=== PATIENT | female | born 2000 | race Caucasian/White ===

== ENCOUNTER 2021-12-04 22:46 | Emergency (ER) | payer SELFPAY ==
[~2021-12-04] VITALS: Ht 165.1 cm; Wt 85.3 kg
[2021-12-04 23:28] VITALS: BP_SYST 158
[2021-12-05 00:27] LABS: BASOPHILS % (AUTO) 0.5 % (0.0-2.0); EOSINOPHILS % (AUTO) 0.3 % (0.0-4.0); HEMATOCRIT 40.7 % (36-48); HEMOGLOBIN 13.6 g/dL (12.0-16.0); LYMPHOCYTES # (AUTO) 2.6 K/uL (1.0-5.5); LYMPHOCYTES % (AUTO) 33.6 % (20.5-51.5); MEAN CORPUSCULAR HEMOGLOBIN 29 pg (27-31); MEAN CORPUSCULAR HGB CONC 34 % (32-36); MEAN CORPUSCULAR VOLUME 88 fL (79.0-98.0); MONOCYTES # (AUTO) 0.5 K/uL (0.0-1.0); NEUTROPHILS # (AUTO) 4.6 K/uL (1.8-7.7); NEUTROPHILS % (AUTO) 59.6 % (40.0-70.0); PLATELET COUNT (AUTO) 315 K/uL (130-430); RED BLOOD CELL COUNT(AUTO) 4.64 MIL/uL (4.2-6.2); RED CELL DISTRIBUTION WIDTH 14.2 % (9.0-15.0); WHITE BLOOD COUNT (AUTO) 7.8 K/uL (4.5-11.0)
[2021-12-05 00:42] LABS: CALCIUM 8.8 mg/dL (8.4-11.0); CREATININE 0.62 mg/dL (0.55-1.30); POTASSIUM 3.6 mmol/L (3.5-5.1)
[2021-12-05 01:01] LABS: ALBUMIN 4.1 g/dL (3.4-4.8); TOTAL BILIRUBIN 0.3 mg/dL (0.0-1.0)
[2021-12-05 01:25] LABS: BILIRUBIN,URINE NEGATIVE (NEGATIVE); BLOOD, URINE NEGATIVE (NEGATIVE); CLARITY/URINE CLEAR (CLEAR); COLOR,URINE YELLOW (YELLOW); GLUCOSE,URINE NEGATIVE (NEGATIVE); KETONES,URINE 2+ (NEGATIVE); LEUKOCYTE ESTERASE ,URINE NEGATIVE (NEGATIVE); NITRITE, URINE NEGATIVE (NEGATIVE); PH,URINE 5.5 (5.0-8.0); PROTEIN URINE NEGATIVE (NEGATIVE); UROBILINOGEN,URINE 0.2 (0.2-1.0)
[2021-12-05] MEDS ORDERED: IBUP-1971 PO (02:28)
[2021-12-05 02:35] VITALS: BP_SYST 158
== END 2021-12-05 02:35 | disposition home or self-care (01) ==
LOC: SED 22:46
DX: R10.31 Right lower quadrant pain (principal); R10.32 Left lower quadrant pain
CPT/HCPCS: 36415; 80053; 81003; 81025; 83690; 85025; 99283

== ENCOUNTER 2022-05-23 00:19 | Emergency (ER) | payer SELFPAY ==
[~2022-05-23] VITALS: Ht 165.1 cm; Wt 90.7 kg
[~2022-05-23 00:19] MED LIST: IBUP-1971 PO
[2022-05-23 00:26] VITALS: BP_SYST 151
--- NOTE | 2022-05-23 00:31 | NUR ---
DR. SCHMID AT BEDSIDE.
--- NOTE | 2022-05-23 00:31 | NUR ---
PATIENT TAKEN TO ROOM 6, AMBULATES WITHOUT ISSUE. RESTING IN BED, WAITING FOR ASSESSMENT.
--- NOTE | 2022-05-23 00:35 | NUR ---
BIB AMB WITH TRIAGE NURSE. C/O OF PAIN AND SWELLING BEHIND LEFT EAR X1 DAY, RADIATIING TO LEFT JAW AREA WITH VALDEZ. PAIN LEVAL 04/05. NO C/O N/V/D OR FEVER. DENIES INJURY. DR. SCHMID AT BEDSIDE EXAM/ EVAL
[2022-05-23] MEDS ORDERED: CEPH-548 PO (00:47)
[2022-05-23 01:11] VITALS: BP_SYST 143
--- NOTE | 2022-05-23 01:13 | NUR ---
PT STABLE FOR D/C TO HOME WITH MOM. TO LOBBY AMB WITH ALL PAPERWORK IN [facility]
== END 2022-05-23 01:11 | disposition home or self-care (01) ==
LOC: SED 00:19
DX: L08.9 Local infection of the skin and subcutaneous tissue, unspecified (principal); R51.9 Headache, unspecified; Z79.899 Other long term (current) drug therapy
CPT/HCPCS: 99282; 99283

== ENCOUNTER 2023-06-07 00:35 | Emergency (ER) | payer MEDICAID, OTHER ==
[~2023-06-07] VITALS: Ht 165.1 cm; Wt 97.5 kg
[~2023-06-07 00:35] MED LIST changes: +CEPH-548 PO; +OSEL75CA PO
[2023-06-07 00:44] VITALS: BP_SYST 159; PULSE 20; RESP 20; TEMP 98; O2SAT 98
[2023-06-07 01:30] VITALS: BP_SYST 159; PULSE 20; RESP 20; TEMP 98; O2SAT 98
[2023-06-07] MEDS ORDERED: CEPH-548 PO (01:40)
[2023-06-07] MEDS ORDERED: IBUP-1971 PO (01:40)
== END 2023-06-07 01:30 | disposition home or self-care (01) ==
LOC: SED 00:35
DX: L02.211 Cutaneous abscess of abdominal wall (principal); Z79.899 Other long term (current) drug therapy
CPT/HCPCS: 99283

== ENCOUNTER 2024-02-20 23:01 | Emergency (ER) | payer OTHER ==
[~2024-02-20] VITALS: Ht 165.1 cm; Wt 99.8 kg
[2024-02-20 23:29] VITALS: BP_SYST 135; PULSE 67; RESP 16; TEMP 98.4; O2SAT 99
[2024-02-21] MEDS: IBUPROFEN 400 MG TABLET PO ONE (00:20)
[2024-02-21] MEDS: ACETAMINOPHEN 500 MG TABLET PO ONE (00:20)
[2024-02-21] MEDS ORDERED: CLIN-22 PO (00:23)
[2024-02-21] MEDS ORDERED: AUG875 PO (00:25)
[2024-02-21 00:45] VITALS: BP_SYST 135; PULSE 67; RESP 16; TEMP 98.4; O2SAT 99
== END 2024-02-21 00:45 | disposition home or self-care (01) ==
LOC: SED 23:01
DX: R22.1 Localized swelling, mass and lump, neck (principal); M54.2 Cervicalgia; Z79.899 Other long term (current) drug therapy
CPT/HCPCS: 99283; 99284

== ENCOUNTER 2024-07-24 23:20 | Emergency (ER) | payer OTHER ==
[~2024-07-24] VITALS: Ht 165.1 cm; Wt 113.4 kg
[~2024-07-24 23:20] MED LIST changes: +AUG875 PO
[2024-07-24 23:35] VITALS: BP_SYST 139; PULSE 88; RESP 20; TEMP 98; O2SAT 98
[2024-07-25 00:20] LABS: BASOPHILS % (AUTO) 0.4 % (0.0-2.0); EOSINOPHILS # (AUTO) 0.2 K/uL (0.0-0.4); EOSINOPHILS % (AUTO) 2.7 % (0.0-4.0); HEMATOCRIT 34.9 % (36-48); HEMOGLOBIN 11.6 g/dL (12.0-16.0); LYMPHOCYTES # (AUTO) 2.7 K/uL (1.0-5.5); LYMPHOCYTES % (AUTO) 40.2 % (20.5-51.5); MEAN CORPUSCULAR HEMOGLOBIN 26 pg (27-31); MEAN CORPUSCULAR HGB CONC 33 % (32-36); MEAN CORPUSCULAR VOLUME 79 fL (79.0-98.0); MONOCYTES # (AUTO) 0.4 K/uL (0.0-1.0); MONOCYTES % (AUTO) 6.4 % (1.7-9.3); NEUTROPHILS # (AUTO) 3.4 K/uL (1.8-7.7); NEUTROPHILS % (AUTO) 50.3 % (40.0-70.0); PLATELET COUNT (AUTO) 350 K/uL (130-430); RED BLOOD CELL COUNT(AUTO) 4.43 MIL/uL (4.2-6.2); RED CELL DISTRIBUTION WIDTH 15.3 % (9.0-15.0); WHITE BLOOD COUNT (AUTO) 6.8 K/uL (4.8-10.8)
[2024-07-25 00:51] LABS: BILIRUBIN,URINE NEGATIVE (NEGATIVE); BLOOD, URINE NEGATIVE (NEGATIVE); CLARITY/URINE CLEAR (CLEAR); COLOR,URINE YELLOW (YELLOW); GLUCOSE,URINE NEGATIVE (NEGATIVE); KETONES,URINE 1+ (NEGATIVE); LEUKOCYTE ESTERASE ,URINE NEGATIVE (NEGATIVE); NITRITE, URINE NEGATIVE (NEGATIVE); PROTEIN URINE NEGATIVE (NEGATIVE); UROBILINOGEN,URINE 0.2 (0.2-1.0)
[2024-07-25 01:46] VITALS: BP_SYST 130; PULSE 77; RESP 20; TEMP 98; O2SAT 98
== END 2024-07-25 01:46 | disposition home or self-care (01) ==
LOC: SED 23:20
DX: O20.0 Threatened abortion (principal); Z3A.01 Less than 8 weeks gestation of pregnancy; Z79.899 Other long term (current) drug therapy; Z79.2 Long term (current) use of antibiotics
CPT/HCPCS: 36415; 76856; 81001; 81003; 84702; 85025; 86900; 86901; 99284